=== PATIENT | male | born 1940 | race Caucasian/White ===

== ENCOUNTER 2021-12-11 17:19 | Observation (INO) | payer OTHER, SELFPAY ==
[2021-12-11] VITALS (13 sets, daily range): BP systolic 144–194; BP diastolic 68–89; PULSE 52–86; RESP 12–26; TEMP 34.5–36.9; O2SAT 89–98; BMI 25.7; BMI 27.1
--- NOTE | 2021-12-11 | DI.ECHO.S_ITS ---
[facility] +---------+ : : [address] : [address] : : : : [id number] : : : : Phone: [phone]+ Echocardiogram Report + + :Name: CHARLA TIDWELL Study Date: 12/12/2021 Height: 73 in : :[facility] ReadingLocation: Weight: 185 lb : : Gender: Male BSA: 2.1 m2 : :: 1940 Age: 81 yrs BP: 194/81 mmHg: :Reason For Study: TIA, CVA : :Ordering Physician: Manolo FANGformed By: Kerline Flowers : :Referring: ROMERO FANG : + + Interpretation Summary 1) Normal left ventricular thickness, size, wall motion, and systolic function (EF 60-65%). 2) Normal right ventricular size and function. 3) There is mild aortic stenosis (valve area 1.5cm2, mean gradient 13mmHg, severity ratio 0.51). 4) There is mild aortic regurgitation. 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 6) Hypertension present during the study (BP 194/81m Hg). 7) No prior Echo available for comparison. Procedure: A two-dimensional transthoracic echocardiogram with color flow and Doppler was performed. The study quality was technically adequate. There is no prior echocardiogram noted for this patient. The patient was in sinus rhythm with heart rates between 64-72 bpm during the exam. Left Ventricle: The estimated left ventricular end diastolic volume is 80 ml. The left ventricle is normal in size and wall thickness. The ejection fraction is estimated to be 60-65%. Left ventricular systolic function appears normal without focal wall motion abnormalities. Diastolic parameters suggest a relaxation abnormality of the left ventricle, consistent with probable normal filling pressures. Right Ventricle: The right ventricle is normal in size and function. Atria: The left atrium is moderately dilated. Right atrial size is normal. 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 Mitral Valve: The mitral valve leaflets appear mildly thickened, but open well. There is mild mitral annular calcification. There is mild mitral regurgitation. Aortic Valve: The aortic valve is trileaflet. The aortic valve is mildly calcified. The peak aortic velocity is 2.2 m/sec. The aortic valve mean gradient is 13 mmHg. The calculated aortic valve area is 1.5 cm2. There is mild aortic stenosis. There is mild aortic regurgitation. Tricuspid Valve: The tricuspid valve is normal in structure and function. There is a trace or physiologic amount of tricuspid regurgitation. Pulmonary artery pressures cannot be estimated because of the lack of a measurable TR jet velocity. Pulmonic Valve: The pulmonic valve is not well visualized. There is no pulmonic valvular regurgitation. Great Vessels: The aortic root is normal size. The dimensions of the ascending aorta are normal. The IVC is of normal diameter and collapses greater than 50% with a sniff. This suggests a low right atrial pressure of 3 mm Hg. Pericardium/ Pleura There is no pericardial effusion. There is no pleural effusion. MMode/2D Measurements & Calculations LVIDd: 3.7 cm LVOT diam: 2.0 cm LVIDs: 2.6 cm Ao root diam: 3.2 cm FS: 30.2 % asc Aorta Diam: 3.0 cm IVSd: 0.79 cm Ao Arch Diam (Prox Trans): 3.1 cm LVPWd: 0.95 cm LV dixon. diameter/BSA (cm/m^2): 1.8 LV sys. diameter/BSA (cm/m^2): 1.2 LA A2 area: 25.5 cm2 RA long axis: 5.3 cm LA A4 area: 21.0 cm2 RA area: 15.6 cm2 LA length (vol): 6.1 cm RA vol: 39.1 ml LA vol: 74.1 ml RA : 18.8 ml/m2 LA vol index: 35.6 ml/m2 IVC diam: 1.9 cm RVD1 (basal): 3.8 cm RVD2 (mid): 3.7 cm TAPSE: 1.8 cm Doppler Measurements & Calculations Ao V2 max: 225.5 cm/sec LVOT Max Lorenzo: 113.6 cm/sec Ao V2 mean: 159.2 cm/sec LV V1 max P.2 mmHg Ao max P.2 mmHg LV V1 VTI: 24.8 cm Ao mean P.0 mmHg ELANA(I,D): 1.5 cm2 Ao V2 VTI: 49.0 cm ELANA(V,D): 1.5 cm2 sev ratio: 0.51 ELANA indexed to BSA (cm^2/m^2): 0.73 MV E max lorenzo: 94.2 cm/sec PA V2 max: 145.3 cm/sec MV A max lorenzo: 115.7 cm/sec PA V2 mean: 95.9 cm/sec MV E/A: 0.81 PA mean P.3 mmHg Med Peak E' Lorenzo: 7.5 cm/sec PA pr(Accel): 43.0 mmHg E/E' med: 12.5 Lat Peak E' Lorenzo: 8.1 cm/sec E/E' lat: 11.6 E/e' average: 12.1 MV dec time: 0.34 sec SV(LVOT): 74.2 ml Reading Physician:01:00 PM
[2021-12-11] MEDS: ONDANSETRON 4 MG/2 ML INJ (17:38)
[2021-12-11 18:20] LABS: Add Manual Diff / Slide Review NO; Basophils Absolute Auto 100 /uL (0-100); Basophils Percent Auto 0.9 % (0-2); Eosinophils Absolute Auto 300 /uL (0-450); Eosinophils Percent Auto 4.3 % (2-4); Hematocrit 42.7 % (41-53); Hemoglobin 14.6 g/dL (13.5-17.5); Lymphocytes Absolute Auto 2600 /uL (1100-4500); Lymphocytes Percent Auto 32.7 % (25-40); Mean Corpuscular HGB Conc 34.1 % (30-36); Mean Corpuscular Hemoglobin 31.4 PG (26-34); Monocytes Absolute Auto 1000 /uL (0-900); Monocytes Percent Auto 12.6 % (3-14); Neutrophils Absolute Auto 3900 /uL (1500-7000); Neutrophils Percent Auto 49.5 % (50-75); Platelet Count 215 X10^3/uL (150-400); Red Blood Cell Count 4.64 X10^6/uL (4.5-5.9); Red Cell Distribution Width 14.2 % (11.6-14.8)
[2021-12-11 18:26] LABS: Alanine Aminotransferase 16 IU/L (<50); Albumin 4.5 g/dL (3.5-5.0); Albumin Globulin Ratio 1.4 (1.0-2.8); Alkaline Phosphatase 83 U/L (38-126); Aspartate Aminotransferase 28 IU/L (17-59); Bilirubin Total 0.4 mg/dL (0.2-1.3); Blood Urea Nitrogen 18 mg/dL (9-20); Carbon Dioxide 25 mmol/L (22-32); Chloride 104 mmol/L (98-107); Estimated Glomerular Filt Rate > 60 mL/min (>60); Globulin 3.3 g/dL (1.7-4.1); Glucose 139 mg/dL (80-110); HEMOLYSIS < 15 (0-50); Lipase 67 U/L (23-300); Potassium 3.8 mmol/L (3.4-5.1); Sodium 141 mmol/L (137-145); Total Protein 7.8 g/dL (6.3-8.2)
--- NOTE | 2021-12-11 18:38 | DI.CT.S_ITS ---
PROCEDURE: CT HEAD/BRAIN WO CON INDICATIONS: dizziness and confusion TECHNIQUE: Noncontrast 4.5 mm thick angled axial sections acquired from the foramen magnum to the vertex, with coronal and sagittal reformats. For radiation dose reduction, the following was used: automated exposure control, adjustment of mA and/or kV according to patient size. COMPARISON: None. FINDINGS: Image quality: Excellent. CSF spaces: Basal cisterns are patent. No extra-axial fluid collections. The ventricles are symmetric in size and shape. Brain: No intracranial bleeds or masses. There is cerebral volume loss for age, with resultant ventricular and sulcal prominence. There are periventricular and deep white matter chronic small vessel ischemic changes. There is intracranial internal carotid artery atherosclerosis. Skull and face: Calvarium and visualized facial bones appear intact, without suspicious lesions. Sinuses: Visualized sinuses and mastoids are clear. IMPRESSION: 1. No acute intracranial process. 2. Moderate atrophy and chronic microvascular ischemic changes. Dictated by: Sonam Herrera M.D. on 12/11/2021 at 19:35 Approved by: Sonam Herrera M.D. on 12/11/2021 at 19:38
--- NOTE | 2021-12-11 18:38 | ED_ITS ---
HPI - Nausea/Vomiting/Diarrhea General Chief complaint: Nausea/Vomiting/Diarrhea Stated complaint: n/v Time Seen by Provider: 12/11/21 18:06 Source: patient and EMS Mode of arrival: EMS History of Present Illness HPI Narrative: Patient is an 81-year-old male. No medications. No diagnosed medical problems. No allergies. Was brought in by EMS for evaluation of an episode that occurred several hours ago. As reported by the patient and his who is at bedside that he was at his normal state health when he had a fairly sudden onset of what he initially described as dizziness. Upon further questioning this appears to be more of an unsteadiness and not a vertigo sensation. Was associated with nausea. There has been no vomiting. Denied chest pain. No shortness of breath. No palpitations. No headache. No sinus congestion. No sore throat. No rashes. No abdominal pain. At the time the patient's also stated that he seemed to be somewhat confused. There was some apparent difficulty with trying to use a phone. His also thought that maybe he was not speaking correctly. There unsure exactly how long the symptoms lasted but it did seem to be several minutes and then seem to completely resolved. The symptoms have happened several times since the presentation. All of them seem to be very similar in all resolved your own. Currently patient states that he just generally does not feel very well. 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 Family History (Updated 12/11/21 @ 23:59 by MATTIE Mckeon) Father Natural with unknown cause Mother Heart disease Social History household members: spouse Smoking Status: Former smoker alcohol intake: current Smoking Status: Former smoker alcohol intake frequency: 3 or more drinks per day Alcohol type: beer, wine and hard liquor Substance Use Type: does not use Exam Initial Vital Signs Initial Vital Signs: Vital Signs Temperature 94.1 F L 12/11/21 17:33 Pulse Rate 55 L 12/11/21 17:33 Respiratory Rate 20 12/11/21 17:33 Blood Pressure 175/89 H 12/11/21 17:33 Pulse Oximetry 95 12/11/21 17:33 Const General: cooperative, comfortable, well developed, well groomed and No ill appearing HENMT Head: normal to inspection and normocephalic Mouth: moist mucous membranes Eyes Pupils: PERRL EOM: EOM intact bilaterally Chest Chest: normal inspection of the chest Resp Effort & Inspection: normal respiratory effort Auscultation: clear to auscultation bilaterally Cardio Rate: regular rate Rhythm: regular rhythm Heart Sounds: no murmurs GI Inspection: normal to inspection Skin General: no rashes or lesions noted Neuro General: patient alert, patient awake, patient oriented x3 and moves all extremities Cranial Nerves: CN's II-XI intact bilaterally Cognition: normal cognition Speech: speech normal Motor: muscle tone normal throughout Sensory Exam: no sensory deficits noted Coordination: [id number] test normal and veel-xr-xmtk test normal Extrem General: normal to inspection and capillary refill normal Psych Appearance: grossly normal and well kempt Scores ABCD2 Age >= 60 years: yes Initial BP. Either SBP >= 140 or DBP >= 90.: yes Clinical features of the TIA: speech disturbance without weakness Duration of symptoms: 10-59 minutes History of diabetes: no ABCD2 Score: 4 GCS Holly coma scale eye opening: Spontaneous Barre coma scale verbal response: Orientated Holly coma scale motor response: Obey commands Holly coma scale total score: 15 NIH Stroke Scale Level of Conciousness: Alert, keenly responsive Ask month/age: Answers both questions correctly. Open/close eyes, close hand: Performs both tasks correctly Best gaze horizontal: Normal Visual schulz: No visual loss Facial palsy: Normal symetrical movement Left arm drift: No drift for full 10 sec Right arm drift: No drift for full 10 sec Left leg drift: No drift for full 5 sec Right leg drift: No drift for full 5 sec Limb ataxia: Absent Sensory on face/arms/legs: Normal, no sensory loss Best language: No aphasia, normal Dysarthria: Normal Extinction or inattention: No abnormality Total NIH Stroke scale score: 0 Course Orders Ordered: ED Orders 12/11/21 17:35 Complete Blood Count AUTO DIFF Stat Comprehensive Metabolic Panel Stat ETOH [Ethanol (ETOH)] Stat Lipase Stat Troponin & CK Cardiac Panel Stat 12/11/21 18:38 CT head/brain wo con Stat Acetaminophen (Acetaminophen 325 Mg Tablet) 650 mg PO Q6HR PRN PRN Reason: Fever/Mild Pain (1-3) Apixaban (Apixaban 5 Mg Tablet) 5 mg PO BID [place] Last Admin: 12/11/21 23:08 Dose: 5 mg Documented by: LUIS Aspirin (Aspirin Ec 81 Mg Tablet) 81 mg PO DAILY [facility] Clopidogrel Bisulfate (Clopidogrel 75 Mg Tablet) 75 mg PO DAILY [facility] Naloxone HCl (Naloxone 0.4 Mg/Ml Vial) 0.2 mg IV Q2MIN PRN PRN Reason: Opiate Reversal Discontinued Medications Aspirin (Aspirin 81 Mg Chew Tab) 324 mg PO NOW ONE Stop: 12/11/21 21:28 Last Admin: 12/11/21 22:04 Dose: 324 mg Documented by: JOHN Ondansetron HCl (Ondansetron 4 Mg/2 Ml Inj) 4 mg IV NOW ONE Stop: 12/11/21 21:58 Last Admin: 12/11/21 22:04 Dose: 4 mg Documented by: JOHN Vital Signs Vital signs: Vital Signs - 8 hr 12/11/21 17:33 12/11/21 18:00 12/11/21 18:30 Temperature 94.1 F L Pulse Rate 55 L 52 L 69 Respiratory Rate 20 16 17 Blood Pressure 175/89 H 176/77 H 169/81 H Pulse Oximetry 95 89 L 97 12/11/21 19:12 12/11/21 19:31 12/11/21 20:01 Temperature Pulse Rate 55 L 55 L 55 L Respiratory Rate 12 16 22 Blood Pressure 177/76 H 163/80 H 157/68 H Pulse Oximetry 98 97 95 12/11/21 20:30 12/11/21 21:00 12/11/21 21:30 Temperature Pulse Rate 77 79 78 Respiratory Rate 17 18 16 Blood Pressure 160/73 H 161/70 H 158/77 H Pulse Oximetry 92 94 97 MDM - Nausea/Vomiting/Diarrhea Lab Data Attestation: I reviewed the patient's lab results. Result diagrams: 12/11/21 17:35 12/11/21 17:35 Labs: Lab Results 12/11/21 12/11/21 12/11/21 Range/Units 17:35 17:35 17:35 WBC 8.0 (4.5-11.0) X10^3/uL RBC 4.64 (4.5-5.9) X10^6/uL Hgb 14.6 (13.5-17.5) g/dL Hct 42.7 (41-53) % MCV 92.0 (80-100) fL MCH 31.4 (26-34) PG MCHC 34.1 (30-36) % RDW 14.2 (11.6-14.8) % Plt Count 215 (150-400) X10^3/uL Neut % (Auto) 49.5 L (50-75) % Lymph % (Auto) 32.7 (25-40) % [place] % (Auto) 12.6 (3-14) % Eos % (Auto) 4.3 H (2-4) % Baso % (Auto) 0.9 (0-2) % Neut # (Auto) 3900 (5895-3496) /uL Lymph # (Auto) 2600 (9496-6896) /uL [place] # (Auto) 1000 H (0-900) /uL Eos # (Auto) 300 (0-450) /uL Baso # (Auto) 100 (0-100) /uL Sodium 141 (137-145) mmol/L Potassium 3.8 (3.4-5.1) mmol/L Chloride 104 (98-107) mmol/L Carbon Dioxide 25 (22-32) mmol/L BUN 18 (9-20) mg/dL Creatinine 0.60 L (0.66-1.25) mg/dL Estimated GFR > 60 (>60) mL/min BUN/Creatinine Ratio 30.0 H (6-22) Glucose 139 H (80-110) mg/dL Hemoglobin A1c (4.0-6.0) % Calcium 9.0 (8.4-10.2) mg/dL Total Bilirubin 0.4 (0.2-1.3) mg/dL AST 28 (17-59) IU/L ALT 16 (<50) IU/L Alkaline Phosphatase 83 (38-126) U/L Total Creatine Kinase 38 L (55-170) U/L CK-MB (CK-2) TNP CK-MB (CK-2) Rel Index TNP Troponin I < 0.012 (0.01-0.034) ng/mL Total Protein 7.8 (6.3-8.2) g/dL Albumin 4.5 (3.5-5.0) g/dL Globulin 3.3 (1.7-4.1) g/dL Albumin/Globulin Ratio 1.4 (1.0-2.8) Lipase 67 (23-300) U/L TSH (0.47-4.68) uIU/mL Ethyl Alcohol ( - 10) mg/dL 12/11/21 12/11/21 12/11/21 Range/Units 17:35 17:35 17:35 WBC (4.5-11.0) X10^3/uL RBC (4.5-5.9) X10^6/uL Hgb (13.5-17.5) g/dL Hct (41-53) % MCV (80-100) fL MCH (26-34) PG MCHC (30-36) % RDW (11.6-14.8) % Plt Count (150-400) X10^3/uL Neut % (Auto) (50-75) % Lymph % (Auto) (25-40) % [place] % (Auto) (3-14) % Eos % (Auto) (2-4) % Baso % (Auto) (0-2) % Neut # (Auto) (1284-2334) /uL Lymph # (Auto) (4744-7821) /uL [place] # (Auto) (0-900) /uL Eos # (Auto) (0-450) /uL Baso # (Auto) (0-100) /uL Sodium (137-145) mmol/L Potassium (3.4-5.1) mmol/L Chloride (98-107) mmol/L Carbon Dioxide (22-32) mmol/L BUN (9-20) mg/dL Creatinine (0.66-1.25) mg/dL Estimated GFR (>60) mL/min BUN/Creatinine Ratio (6-22) Glucose (80-110) mg/dL Hemoglobin A1c 5.2 (4.0-6.0) % Calcium (8.4-10.2) mg/dL Total Bilirubin (0.2-1.3) mg/dL AST (17-59) IU/L ALT (<50) IU/L Alkaline Phosphatase (38-126) U/L Total Creatine Kinase (55-170) U/L CK-MB (CK-2) CK-MB (CK-2) Rel Index Troponin I (0.01-0.034) ng/mL Total Protein (6.3-8.2) g/dL Albumin (3.5-5.0) g/dL Globulin (1.7-4.1) g/dL Albumin/Globulin Ratio (1.0-2.8) Lipase (23-300) U/L TSH 1.66 (0.47-4.68) uIU/mL Ethyl Alcohol < 10 ( - 10) mg/dL Urine Dip Bedside Urine Glucose Negative Bedside Urine Bilirubin - Negative Bedside Urine Ketone +/- 5 Urine Specific [place] 1.030 Bedside Urine Occult Blood - Negative Bedside Urine pH 6 Bedside Urine Protein - Negative Bedside Urine Urobilinogen - Negative Bedside Urine Nitrite - Negative Bedside Urine Leukocytes - Negative Esterase Imaging Data CT scan - head: Radiologist's Impression: [place] [address] CT Scan Report Signed Patient: Sg Rivera MR#: [id number] : 1940 Acct:[id number] Age/Sex: 81 / M Date of Service: 12/11/21 Loc: ED Accession Number: [id number] ?? Procedure: CT head/brain wo con Ordering Provider: Mark Peralta D.O. PROCEDURE:? CT HEAD/BRAIN WO CON ? INDICATIONS:? dizziness and confusion ? TECHNIQUE:? Noncontrast 4.5 mm thick angled axial sections acquired from the foramen magnum to the vertex, with coronal and sagittal reformats.? For radiation dose reduction, the following was used:? automated exposure control, adjustment of mA and/or kV according to patient size.? ? COMPARISON:? None. ? FINDINGS:? Image quality:? Excellent.? ? CSF spaces:? Basal cisterns are patent.? No extra-axial fluid collections.? The ventricles are symmetric in size and shape.? ? Brain:? No intracranial bleeds or masses.? There is cerebral volume loss for age, with resultant ventricular and sulcal prominence.? There are periventricular and deep white matter chronic small vessel ischemic changes.? There is intracranial internal carotid artery atherosclerosis.? ? Skull and face:? Calvarium and visualized facial bones appear intact, without suspicious lesions.? ? Sinuses:? Visualized sinuses and mastoids are clear.? ? IMPRESSION:? ? 1. No acute intracranial process. ? 2. Moderate atrophy and chronic microvascular ischemic changes. ? ? ? Dictated by: Sonam Herrera M.D. on 12/11/2021 at 19:35 ? ? Approved by: Sonam Herrera M.D. on 12/11/2021 at 19:38?? ECG Data Attestation: I personally reviewed and interpreted this ECG as follows: Interpretation: Sinus bradycardia Ventricular rate of 49 Normal axis LVH No ST T wave changes MDM Narrative Medical decision making narrative: EKG is unremarkable. Head CT is unremarkable. Neurologic exam is unremarkable. His dizziness that he presents with his more been unsteadiness and not a vertigo. Was a fairly sudden onset. With the speech issues in the coordination issues that the describes there is concern about potential TIA especially since the symptoms seem to be coming and going. Does have Abcd2 score of 4. NIH score of 0. Given his presenting symptoms patient does require admission to the hospital for further evaluation and treatment of his presenting symptoms. I discussed this with the patient who expressed understanding and agreement. Discussed the case with LUIS Jerome the night Hospital will admit for further evaluation treatment. Patient was given aspirin in the emergency department. Discharge Plan Departure Patient Disposition: Admitted as Observation Clinical Impression: Brain TIA Admit Date/Time: 12/11/21 21:52 Admit Provider: Nuris Jerome
[2021-12-11 19:10] LABS: Creatine Kinase 38 U/L (55-170)
[2021-12-11 19:23] LABS: Troponin I < 0.012 ng/mL (0.01-0.034)
[2021-12-11 20:35] LABS: Ethanol (ETOH) < 10 mg/dL
--- NOTE | 2021-12-11 21:08 | PC.NURSE ---
Pt's daughter updated this RN on pt's condition. Pt has had progressive confusion for the last few months and has escalated in severity in the last few weeks. She reports that the patient is very active but has slowed down in the last year. She also said that the patient drinks but may deny this and is known to sneak drinks at home. Pt lives at home with his spouse and have family down the street. According to daughter huan patient was gardening outside and sat down after feeling unwell. Pt's spouse thought he was having a stroke because he had a far away gaze and then the patient began to vomit. Daughter is now at the bedside with pt's spouse.
--- NOTE | 2021-12-11 21:59 | DI.MRI.S_ITS ---
PROCEDURE: MR STROKE Pre- and post-contrast brain MRI, non-contrast brain MR angiogram, pre- and postcontrast neck MR angiogram INDICATIONS: CVA TECHNIQUE: Brain: Noncontrast axial T1 spin echo, axial T2 fast spin echo, sagittal and axial FLAIR, coronal T2 fast spin echo, axial gradient echo, axial diffusion and ADC through the brain. After the administration of contrast, axial 3D VIBE of the cranial vasculature and brain. Brain MRA: Non-contrast 3-D time of flight MR angiogram, with multiple jikolca-mmuaqyqql-qglfoegbmo (MIP) reformats performed. Neck MRA: Axial and sagittal TruFISP through the neck. Coronal dynamic MR angiogram during administration of contrast in the arterial and venous phases, with 3-dimenstional awgzbma-glrvpnhxg-irrdgqdsuu (MIP) reformats constructed from subtraction images. COMPARISON: [facility], CT, CT HEAD/BRAIN WO CON, 12/11/2021, 18:52. FINDINGS: Image quality: Excellent. BRAIN: CSF spaces: Ventricles are normal in size and shape. Basal cisterns are patent. No extra-axial fluid collections. Brain: There is abnormal diffusion-weighted signal seen involving the superior aspect left cerebellar hemisphere, with associated dark signal on the ADC map and associated developing increased T2 weighted signal. No intracranial bleeds or mass effects. Avendano-white matter interface is normal. Brainstem appears normal. Normal intravascular flow voids are present. No abnormal intracranial enhancement. Note is made of age-appropriate brain parenchymal volume loss and chronic small vessel ischemic changes. Skull and face: Calvarial marrow signal is normal. Orbits appear normal. Note is made of bilateral lens replacements. Sinuses: There is mild mucosal thickening seen involving the left maxillary sinus and the ethmoid air cells. Sinuses and mastoids are otherwise clear. BRAIN MR ANGIOGRAM: Anterior circulation: Intracranial internal carotid arteries are normal in size and enhancement. The flow within the paired anterior cerebral arteries is normal and symmetric. There is apparent narrowing of both M1 segments, and the right proximal M2 segments yet this is regarded to be artifactual. The anterior communicating artery is seen. No stenoses, occlusions, or aneurysms. Posterior circulation: There is poor flow seen within the right V4 segment distally. The right V4 segment largely terminates in the right posterior inferior cerebellar artery. The left V4 segment is within normal limits. There is a normal appearing basilar artery. There is a prominent right posterior communicating artery seen, with an accompanying diminutive right P1 segment. This is attributed to a type origin of the right posterior cerebral artery, which is considered to be a normal developmental variant of typically no clinical consequence. The left posterior communicating artery is also prominent. The flow within the posterior cerebral arteries is normal and symmetric. No stenoses, occlusions, or aneurysms. NECK MR ANGIOGRAM: Carotids: Great vessels demonstrate a conventional anatomy as they arise from the aortic arch. The origins of the common carotid arteries appear patent. The calibers and courses of both common carotid arteries are normal. The bifurcation regions appear normal bilaterally. The internal carotid arteries demonstrate normal course and caliber. Posterior circulation: The origins of the vertebral arteries appear patent. More superior extracranial portions of both vertebral arteries demonstrate normal course and caliber. Miscellaneous: Subclavian arteries appear patent. Pre-contrast images through the neck show no soft tissue abnormalities. 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 No masses or abnormal enhancement can be seen. Note is made of age-appropriate brain parenchymal volume loss and chronic small vessel ischemic changes. BRAIN MR ANGIOGRAM: There is poor flow seen within the right V4 segment. No significant additional intracranial arterial abnormality is seen. Trxcsd-ca-Uxlixi developmental anomalies are incidentally noted. NECK MR ANGIOGRAM: Within the arteries of the neck, no hemodynamically significant stenosis can be seen. Dictated by: Gregory Simon M.D. on 12/12/2021 at 11:08 Approved by: Gregory Simon M.D. on 12/12/2021 at 11:14
[2021-12-11] MEDS: ONDANSETRON 4 MG/2 ML INJ IV (22:04)
[2021-12-11] MEDS: ASPIRIN 81 MG CHEW TAB 324 MG PO (22:04)
[2021-12-11 22:22] LABS: COVID19 -Nasal RAPID Negative (Negative)
[2021-12-11 22:41] LABS: Hemoglobin A1C% w Est Avg Glu 5.2 % (4.0-6.0)
[2021-12-11 22:57] LABS: TSH w/ Reflex to FT4 1.66 uIU/mL (0.47-4.68)
[2021-12-11] MEDS: APIXABAN 5 MG TABLET PO (23:08)
--- NOTE | 2021-12-11 23:14 | PC.NURSE ---
Pt to room 214 via stretcher-sat up on the side of the stretcher for a couple of minutes and then was able to pivot transfer to bed. Pt stated he had a little bit of nausea and dizziness transferring but it went away after a minute. Pt is awake, alert, and oriented x 3. Denies pain, chest pain, or shortness of breath. Denies headache or vision disturbance. Oriented Pt to room, call light, bed controls and tv controls. Urinal at the bedside and water to drink. Pt was able to take a po medication as ordered. SCD's on and running. IV saline locked. Bed alarm on for safety. Pt denies needs at this time and agrees to call for assistance as needed.
--- NOTE | 2021-12-11 23:51 | P.HP_ITS ---
History of Present Illness History of Present Illness Date Patient Seen: 12/11/21 Time Patient Seen: 22:00 Date of Onset of Symptoms: 12/11/21 Chief complaint: TIA rule out, n/v Narrative: Nicolás Rivera is an 81-year-old male patient of Diana Martínez and takes no medications was out cutting and trimming his lawn when he returned back to the house with dizziness, lightheadedness nausea and vomiting. He was noted by his to be having difficult time down his phone, she stated he had slurred speech patient states that he was nauseous and felt poorly. He was also observed to be having difficulties ambulating. May also have mention to the emergency room department did provider that he drinks quite a bit though they state he will probably deny it. Patient stated that he threw up small amounts several times he has had sweats denies shortness of breath denies headache visual changes abdominal pain he does have occasional constipation that he takes little green pills for. He has some bruising on his left arm he attributes to ?Miss Chisholm?, his [id number] Goldendoodle when she gets up on his bed every night. CT of the brain was negative for an intracranial process. He is afebrile, blood pressure 144/86, heart rate 66, respiratory rate 18, oxygen saturation of 94% on 2 L, he weighs 88.4 kg with a BMI of 27.1. CBC is unremarkable, glucose is mildly elevated at 139 and his A1c was 5.2 not indicating diabetes, troponin was negative, liver enzymes within normal limits, lipase 67, and TSH of 1.66. Alcohol level was within normal limits and COVID-19 PCR is negative. 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 Family & Social History Family History (Updated 12/11/21 @ 23:59 by MATTIE Mckeon) Father Natural with unknown cause Mother Heart disease Social History: household members spouse Prior Living Arrangements House Safety & Behavioral: Feels Safe in Current Yes Environment Been Physically Hurt or No Threatened By a Person Tobacco & Substance use: Tobacco type cigarettes Smoking Status Former smoker, quit 25 years ago alcohol intake current alcohol intake frequency 1 vodka martini per day and 2 glasses of wine per day Substance Use Type does not use Comment: 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 Meds Home Medications and Allergies Home Medications Medication Instructions Recorded Confirmed Type No Known Home Medications 12/11/21 12/11/21 History Allergies Allergy/AdvReac Type Severity Reaction Status Date / Time No Known Drug Allergies Allergy Verified 12/11/21 17:33 Review of Systems Review of Systems ROS: Yes All systems reviewed with the patient and are negative except as otherwise documented Exam Vital Signs (past 8 hours): - 12/11/21 17:33 12/11/21 18:00 12/11/21 18:30 Temperature 94.1 F L Pulse Rate 55 L 52 L 69 Respiratory Rate 20 16 17 Blood Pressure 175/89 H 176/77 H 169/81 H Pulse Oximetry 95 89 L 97 12/11/21 19:12 12/11/21 19:31 12/11/21 20:01 Temperature Pulse Rate 55 L 55 L 55 L Respiratory Rate 12 16 22 Blood Pressure 177/76 H 163/80 H 157/68 H Pulse Oximetry 98 97 95 12/11/21 20:30 12/11/21 21:00 12/11/21 21:30 Temperature Pulse Rate 77 79 78 Respiratory Rate 17 18 16 Blood Pressure 160/73 H 161/70 H 158/77 H Pulse Oximetry 92 94 97 12/11/21 22:00 12/11/21 22:01 12/11/21 22:42 Temperature Pulse Rate 86 85 60 Respiratory Rate 26 H 19 20 Blood Pressure 194/81 H 158/78 H Pulse Oximetry 93 92 95 12/11/21 22:59 Temperature 98.5 F Pulse Rate 66 Respiratory Rate 18 Blood Pressure 144/86 H Pulse Oximetry 94 Oxygen Delivery Method Room Air Oxygen Flow Rate 2 Narrative Exam Narrative: Gen: Alert, oriented, well-developed 81 y.o. male, NAD appears younger than stated age HEENT: normocephalic, atraumatic, conjunctiva clear, sclera non-icteric, oral mucosa pink and moist Neck: supple, full ROM, no JVD, trachea is midline Resp: Lungs CTA, non-labored breathing CV: RRR, no murmur or rubs Abd: soft, non-tender, normoactive BTs Skin: bronzed, mild less than 1 cm diameter eccymosis on left upper arm, no lesions or rashes, dry and intact Neuro: Alert and oriented X 4 w/no focal deficits. Speech clear and coherent. Extremities: moves all 4 extremities, is ambulatory, negative Alex?s sign Psyche: normal mood and affect. Objective ECG Impression: Sinus bradycardia. Labs Result Diagrams: 12/11/21 17:35 12/11/21 17:35 Labs: Laboratory Results - last 24 hr 12/11/21 12/11/21 12/11/21 17:35 17:35 17:35 WBC 8.0 RBC 4.64 Hgb 14.6 Hct 42.7 MCV 92.0 MCH 31.4 MCHC 34.1 RDW 14.2 Plt Count 215 Neut % (Auto) 49.5 L Lymph % (Auto) 32.7 [place] % (Auto) 12.6 Eos % (Auto) 4.3 H Baso % (Auto) 0.9 Neut # (Auto) 3900 Lymph # (Auto) 2600 [place] # (Auto) 1000 H Eos # (Auto) 300 Baso # (Auto) 100 Sodium 141 Potassium 3.8 Chloride 104 Carbon Dioxide 25 BUN 18 Creatinine 0.60 L Estimated GFR > 60 BUN/Creatinine Ratio 30.0 H Glucose 139 H Hemoglobin A1c Calcium 9.0 Total Bilirubin 0.4 AST 28 ALT 16 Alkaline Phosphatase 83 Total Creatine Kinase 38 L CK-MB (CK-2) TNP CK-MB (CK-2) Rel Index TNP Troponin I < 0.012 Total Protein 7.8 Albumin 4.5 Globulin 3.3 Albumin/Globulin Ratio 1.4 Lipase 67 TSH Ethyl Alcohol SARS-CoV-2 (PCR) 12/11/21 12/11/21 12/11/21 17:35 17:35 17:35 WBC RBC Hgb Hct MCV MCH MCHC RDW Plt Count Neut % (Auto) Lymph % (Auto) [place] % (Auto) Eos % (Auto) Baso % (Auto) Neut # (Auto) Lymph # (Auto) [place] # (Auto) Eos # (Auto) Baso # (Auto) Sodium Potassium Chloride Carbon Dioxide BUN Creatinine Estimated GFR BUN/Creatinine Ratio Glucose Hemoglobin A1c 5.2 Calcium Total Bilirubin AST ALT Alkaline Phosphatase Total Creatine Kinase CK-MB (CK-2) CK-MB (CK-2) Rel Index Troponin I Total Protein Albumin Globulin Albumin/Globulin Ratio Lipase TSH 1.66 Ethyl Alcohol < 10 SARS-CoV-2 (PCR) 12/11/21 22:05 WBC RBC Hgb Hct MCV MCH MCHC RDW Plt Count Neut % (Auto) Lymph % (Auto) [place] % (Auto) Eos % (Auto) Baso % (Auto) Neut # (Auto) Lymph # (Auto) [place] # (Auto) Eos # (Auto) Baso # (Auto) Sodium Potassium Chloride Carbon Dioxide BUN Creatinine Estimated GFR BUN/Creatinine Ratio Glucose Hemoglobin A1c Calcium Total Bilirubin AST ALT Alkaline Phosphatase Total Creatine Kinase CK-MB (CK-2) CK-MB (CK-2) Rel Index Troponin I Total Protein Albumin Globulin Albumin/Globulin Ratio Lipase TSH Ethyl Alcohol SARS-CoV-2 (PCR) Negative Assessment & Plan Assessment & Plan narrative: Nicolás Rivera is placed into observation for further evaluation of a TIA vs CVA Suspected, TIA * Cardiac telemetry * NIH score greater than 5 no, * Dual antiplatelet therapy: Yes initiate dual antiplatelet therapy with clopidogrel 75 mg p.o. daily and aspirin 81 mg p.o. daily * MR stroke scheduled for 12/12 * Complete Echo with bubble study for 12/12 * PT/OT/ST evaluation Hypertension, acute with an admission bp of 175/89, present on admission * Allow for permissive hypertension for brain profusion of a systolic of 220 and a diastolic of 105. * IV labetolol if his systolic exceeds 220 or diastolic greater than 105. HLD * Fasting lipid panel, pending for 0500 labs * Atorvastatin 40 mg po at bedtime Risk stratification Fasting lipid panel pending for the morning A1c is 5.1% X not diabetic COVID-19 COVID-19 status: Negative Result date/Date tested (Pos, Neg/Pending): 12/12/21 Scores ABCD2 Age >= 60 years: yes Initial BP. Either SBP >= 140 or DBP >= 90.: yes Clinical features of the TIA: speech disturbance without weakness Duration of symptoms: 10-59 minutes History of diabetes: no ABCD2 Score: 4 Wells' Criteria for PE Clinical signs and symptoms of DVT: No PE is #1 Dx or equally likely: No Heart rate > 100: No Immobilization at least 3 days or surg in previous 4 weeks: No History of PE or DVT: No Hemoptysis: No Malignancy w/Treatment within 6 months or palliative: No Wells' PE Score total: 0 Quality VTE Deep Vein Thrombosis/Pulmonary Embolism Present on Admission: No MIPS - Admit I confirm the patient?s Advance Care Plan is present, Code status is documented, Surrogate decision maker is in patient?s record [If Yes, STOP here]: Yes MIPS - DC The patient has current or prior documentation of left ventricular ejection fraction (LVEF) less than 40%, or moderate or severely depressed left ventricu lar systolic function.: No
[2021-12-12 03:22] LABS: Ur Creatinine 20 (Normal); Ur Specific Gravity 1.025 (Normal)
[2021-12-12 03:23] LABS: UR Morphine/Opiate cutoff 300 Negative (Negative); Urine Amphetamines Negative (Negative); Urine Barbiturates Negative (Negative); Urine Benzodiazepines Negative (Negative); Urine Cocaine Negative (Negative); Urine MDMA Negative (Negative); Urine Methadone Negative (Negative); Urine Methamphetamines Negative (Negative); Urine Oxycodone Negative (Negative); Urine Phencyclidine Negative (Negative); Urine Tetrahydrocannabinol Negative (Negative); Urine Tricyclic Antidepressant Negative (Negative); Urine pH 6 (Normal)
[2021-12-12 03:29] LABS: Bacteria Urine None Seen; RBC Urine None Seen (0-5/HPF); WBC Urine 0-1/HPF (0-5/HPF)
[2021-12-12 03:30] LABS: Culture Indicated Urine Cult Not Indicated
[2021-12-12 04:17] VITALS: BP 134/65; PULSE 68; RESP 17; TEMP 36.1; O2SAT 97
[2021-12-12 06:13] LABS: Add Manual Diff / Slide Review NO; Basophils Absolute Auto 0 /uL (0-100); Basophils Percent Auto 0.6 % (0-2); Eosinophils Absolute Auto 0 /uL (0-450); Eosinophils Percent Auto 0.2 % (2-4); Hematocrit 40.6 % (41-53); Hemoglobin 13.7 g/dL (13.5-17.5); Lymphocytes Absolute Auto 1300 /uL (1100-4500); Lymphocytes Percent Auto 20.2 % (25-40); Mean Corpuscular HGB Conc 33.8 % (30-36); Mean Corpuscular Volume 91.8 fL (80-100); Monocytes Absolute Auto 800 /uL (0-900); Monocytes Percent Auto 12.3 % (3-14); Neutrophils Absolute Auto 4100 /uL (1500-7000); Neutrophils Percent Auto 66.7 % (50-75); Platelet Count 199 X10^3/uL (150-400); Red Blood Cell Count 4.43 X10^6/uL (4.5-5.9); White Blood Cell Count 6.2 X10^3/uL (4.5-11.0)
[2021-12-12 06:30] LABS: Cholesterol 226 mg/dL (140-199); HDL Cholesterol 101 mg/dL (40-60); LDL Cholesterol Calculated 115 mg/dL (<100); Triglycerides 49 mg/dL (35-150)
[2021-12-12 08:30] VITALS: BP 141/67; PULSE 74; RESP 18; TEMP 36.8; O2SAT 96
[2021-12-12] MEDS: CLOPIDOGREL 75 MG TABLET PO (08:53)
[2021-12-12] MEDS: ASPIRIN EC 81 MG TABLET PO (08:53)
[2021-12-12] MEDS: APIXABAN 5 MG TABLET PO (08:53)
--- NOTE | 2021-12-12 11:31 | CM.DANOTE ---
DCP: Case received, EMR reviewed and met with patient. Introduced self and role. Was able to obtain information regarding patient's baseline activity status prior to hospitalization. DCP assessment completed with information currently available. Patient is an 81 year old male who admitted yesterday evening to the care of the hospitalist team. PCP: Diana Martínez Payer: confirmed: [facility]. Patient came to the hospital via ambulance secondary to having onset of dizziness, unsteadiness and nausea. According to notes, patient had also had some difficulty using the phone. Patient was diagnosed with suspected TIA, he will be having an MRI today. He does not have current P.T. orders. Met with patient in his room. He is alert and oriented, and was sitting up in bed. Confirmed that he resides in [place] with his spouse, Brandon. He is independent at his baseline, as he was mowing his lawn before the symptoms occurred. P: DCP to continue to follow for any needs, and will see if patient will need P.T, and MRI is currently pending. Marcela Santillan RN/Planer Hand Discharge Planning/Care Management CM Discharge Assessment Start: 12/12/21 11:29 Freq: Status: Active Protocol: Document 12/12/21 11:30 (Rec: 12/12/21 11:31 [id number]) Discharge Planning Assessment Assigned Satellite Specialist Marcela Santillan RN/Planer Hand Advance Directives? No History Provided By Patient,Medical Record Prior Living Arrangements House Household Members spouse Type of transporation used prior to Drives own vehicle admit Independent with ADL's Yes Is patient alert and oriented? Yes Caregiver for Another No Barriers to Discharge No Discharge Plan Home Referrals Initiated None needed Whiteboard Updated in Patient Room with Yes name and ext. # of Satellite Specialist Review Status In Process Next Review Type Continued Stay Review
[2021-12-12 12:26] LABS: Blood Urea Nitrogen 13 mg/dL (9-20); Calcium 8.5 mg/dL (8.4-10.2); Carbon Dioxide 31 mmol/L (22-32); Chloride 102 mmol/L (98-107); Estimated Glomerular Filt Rate > 60 mL/min (>60); Glucose 117 mg/dL (80-110); HEMOLYSIS < 15 (0-50); Magnesium 1.9 mg/dL (1.6-2.3); Potassium 4.4 mmol/L (3.4-5.1); Sodium 137 mmol/L (137-145)
--- NOTE | 2021-12-12 13:46 | P.DS_ITS ---
History of Present Illness History of Present Illness Date Patient Seen: 12/12/21 Chief complaint: TIA rule out, n/v Narrative: History of Present Illness History of Present Illness Date Patient Seen:?12/11/21 Time Patient Seen:?22:00 Date of Onset of Symptoms:?12/11/21 Narrative: Nicolás Rivera is an 81-year-old male patient of Diana Martínez and takes no medications was out cutting and trimming his lawn when he returned back to the house with dizziness, lightheadedness nausea and vomiting.? He was noted by his to be having difficult time down his phone, she stated he had slurred speech patient states that he was nauseous and felt poorly.? He was also observed to be having difficulties ambulating.? May also have mention to the emergency room department did provider that he drinks quite a bit though they state he will probably deny it.? Patient stated that he threw up small amounts several times he has had sweats denies shortness of breath denies headache visual changes abdominal pain he does have occasional constipation that he takes little green pills for.? He has some bruising on his left arm he attributes to ?Miss Chisholm?, his [id number] Goldendoodle when she gets up on his bed every night. CT of the brain was negative for an intracranial process.? He is afebrile, blood pressure 144/86, heart rate 66, respiratory rate 18, oxygen saturation of 94% on 2 L, he weighs 88.4 kg with a BMI of 27.1.? CBC is unremarkable, glucose is mildly elevated at 139 and his A1c was 5.2 not indicating diabetes, troponin was negative, liver enzymes within normal limits, lipase 67, and TSH of 1.66.? Alcohol level was within normal limits and COVID-19 PCR is negative. 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 DYSLIPIDEMIA. DISCHARGE ON LIPITOR OVERWEIGHT. BMI OF 27 POSSIBLE ALCOHOL ABUSE. COUNSELING GIVEN PATIENT SHOW HYPERTENSION. DISCHARGED ON LISINOPRIL Hospital Course: THIS IS A VERY PLEASANT 81-YEAR-OLD MALE WHO WAS ADMITTED TO THE HOSPITAL DUE TO DIFFICULTY STANDING UP AND REPORTED LIGHTHEADEDNESS AND DIZZINESS. PATIENT WAS WORKED UP FOR A POSSIBLE CVA/TIA. MRI DID SHOW WHAT APPEARS TO BE A LEFT CEREBRAL SUBACUTE STROKE. PATIENT HAS SIGNIFICANT NEUROLOGICAL DEFICIT AT THIS TIME. NO DIFFICULTY SWALLOWING. HE HAS BEEN AMBULATING WELL WITHOUT REPORTED DIZZINESS OR LIGHTHEADEDNESS. LDL CHOLESTEROL IS ABOVE 100. HE HAS SOME MILD ELEVATED BLOOD PRESSURE READINGS PATIENT WILL BE DISCHARGED ON LIPITOR 40 MG, HE IS ALREADY ON FISH OIL. RECOMMENDED TO ALSO ADD [id number] NIACIN. LOW-SALT DIET WELL LOW-CHOLESTEROL DIET IS RECOMMENDED. PATIENT ALSO WILL BE DISCHARGED ON LISINOPRIL TO HELP WITH STRICT BLOOD PRESSURE CONTROL DISCHARGED ON DUAL ANTI-PLATELET THERAPY. ASPIRIN AND PLAVIX. PATIENT WILL NEED TO BE MONITOR CLOSELY FOR ANY SIGN OF BLEEDING WHILE ON ANTI-PLATELET THERAPY. RECOMMENDATION IS TO FOLLOW-UP WITH PRIMARY CARE PHYSICIAN WITHIN 7 DAYS AND TO BE REFERRED TO NEUROLOGY FOR FURTHER WORKUP AND MANAGEMENT INDICATED. MRA BRAIN AND NECK DONE DURING THE WORKUP WAS WITHOUT SIGNIFICANT STENOSIS APPRECIATED. ADDITIONAL MANAGEMENT PER OUTPATIENT PROVIDERS. OF NOTE, FAMILY DID REPORT PATIENT WITH DEVELOPMENT OF MEMORY ISSUES. HE WILL NEED TO BE EVALUATED BY NEUROLOGY OUTPATIENT WITH NEUROPSYCH TESTING TO RULE OUT POSSIBLE DEVELOPING DEMENTIA. DISCHARGE ORDERS ACTIVITIES WILL BE TOLERATED CARDIAC DIET FOLLOW WITH PRIMARY CARE PHYSICIAN WITHIN 3-7 DAYS PCP TO REFER TO NEUROLOGY WITHIN 2-4 WEEKS. INSTRUCTIONS AVOID TOBACCO PRODUCTS AVOID ALL ALCOHOL PRODUCTS TAKE MEDICATION PRESCRIBED ONLY REPORT ANY BLACK TARRY STOOL OR BLOOD IN THE SPUTUM ON IN THE URINE TO HEALTHCARE PROVIDER SOON NOTED Exam Vital Signs (past 8 hours): - 12/12/21 08:30 Temperature 98.3 F Pulse Rate 74 Respiratory Rate 18 Blood Pressure 141/67 H Pulse Oximetry 96 Oxygen Delivery Method Room Air Oxygen Flow Rate 0 Narrative Exam Narrative: NO ACUTE DISTRESS. PATIENT IS ALERT ORIENTED X3. VITAL SIGNS STABLE HEAD ATRAUMATIC NORMOCEPHALIC NECK : SUPPLE WITHOUT ADENOPATHY NO CAROTID BRUITS EYE: EOMI, PERRLA, NORMAL CONJUNCTIVA; NO JAUNDICE CHEST: REGULAR RATE. NO RUBS. PMI IS NON DISPLACED. NO MURMURS; NORMAL S1- S2 PULMONARY: DECREASED BS OVER THE BASES. MILD BIBASILAR CRACKLES NOTED; NO INCREASED DULLNESS TO PERCUSSION ABDOMEN: SOFT. NONTENDER. NONDISTENDED. BOWEL SOUNDS ARE PRESENT IN ALL 4 QUADRANTS. NO MASS. EXTREMITIES: NO EDEMA.. NO CYANOSIS CLUBBING NOTED. NEURO: CRANIAL NERVES 2-12 GROSSLY INTACT. NO FOCAL NEUROLOGICAL DEFICIT NOTED. MSK: NORMAL RANGE OF MOTION FOR AGE. NO JOINT EFFUSION. SKIN: NORMAL FOR ETHNICITY; NO ECCHYMOSIS. NO LESION. GOOD TURGOR.; NO RASHES : NORMAL EXTERNAL GENITALIA. PSYCH : APPROPRIATE MOOD AND AFFECT. ALERT AWAKE ORIENTED X3 Objective Labs Result Diagrams: 12/12/21 06:04 12/12/21 06:04 Labs: Laboratory Results - last 24 hr 12/11/21 12/11/21 12/11/21 17:35 17:35 17:35 WBC 8.0 RBC 4.64 Hgb 14.6 Hct 42.7 MCV 92.0 MCH 31.4 MCHC 34.1 RDW 14.2 Plt Count 215 Neut % (Auto) 49.5 L Lymph % (Auto) 32.7 [place] % (Auto) 12.6 Eos % (Auto) 4.3 H Baso % (Auto) 0.9 Neut # (Auto) 3900 Lymph # (Auto) 2600 [place] # (Auto) 1000 H Eos # (Auto) 300 Baso # (Auto) 100 Sodium 141 Potassium 3.8 Chloride 104 Carbon Dioxide 25 BUN 18 Creatinine 0.60 L Estimated GFR > 60 BUN/Creatinine Ratio 30.0 H Glucose 139 H Hemoglobin A1c Calcium 9.0 Magnesium Total Bilirubin 0.4 AST 28 ALT 16 Alkaline Phosphatase 83 Total Creatine Kinase 38 L CK-MB (CK-2) TNP CK-MB (CK-2) Rel Index TNP Troponin I < 0.012 Total Protein 7.8 Albumin 4.5 Globulin 3.3 Albumin/Globulin Ratio 1.4 Triglycerides Cholesterol LDL Cholesterol, Calc HDL Cholesterol Lipase 67 TSH Urine RBC Urine WBC Urine Bacteria Ur Culture Indicated? Micro UA Comment U Opiates 300ng/mL cut Ur Oxycodone Screen Urine Methadone Screen Ur Barbiturates Screen U Tricyclic Antidepress Ur Phencyclidine Scrn Ur Amphetamines Screen U Methamphetamines Scrn Ur MDMA Scrn (Ecstasy) U Benzodiazepines Scrn Urine Cocaine Screen U Marijuana (THC) Screen Ethyl Alcohol SARS-CoV-2 (PCR) 12/11/21 12/11/21 12/11/21 17:35 17:35 17:35 WBC RBC Hgb Hct MCV MCH MCHC RDW Plt Count Neut % (Auto) Lymph % (Auto) [place] % (Auto) Eos % (Auto) Baso % (Auto) Neut # (Auto) Lymph # (Auto) [place] # (Auto) Eos # (Auto) Baso # (Auto) Sodium Potassium Chloride Carbon Dioxide BUN Creatinine Estimated GFR BUN/Creatinine Ratio Glucose Hemoglobin A1c 5.2 Calcium Magnesium Total Bilirubin AST ALT Alkaline Phosphatase Total Creatine Kinase CK-MB (CK-2) CK-MB (CK-2) Rel Index Troponin I Total Protein Albumin Globulin Albumin/Globulin Ratio Triglycerides Cholesterol LDL Cholesterol, Calc HDL Cholesterol Lipase TSH 1.66 Urine RBC Urine WBC Urine Bacteria Ur Culture Indicated? Micro UA Comment U Opiates 300ng/mL cut Ur Oxycodone Screen Urine Methadone Screen Ur Barbiturates Screen U Tricyclic Antidepress Ur Phencyclidine Scrn Ur Amphetamines Screen U Methamphetamines Scrn Ur MDMA Scrn (Ecstasy) U Benzodiazepines Scrn Urine Cocaine Screen U Marijuana (THC) Screen Ethyl Alcohol < 10 SARS-CoV-2 (PCR) 12/11/21 12/12/21 12/12/21 22:05 03:00 03:00 WBC RBC Hgb Hct MCV MCH MCHC RDW Plt Count Neut % (Auto) Lymph % (Auto) [place] % (Auto) Eos % (Auto) Baso % (Auto) Neut # (Auto) Lymph # (Auto) [place] # (Auto) Eos # (Auto) Baso # (Auto) Sodium Potassium Chloride Carbon Dioxide BUN Creatinine Estimated GFR BUN/Creatinine Ratio Glucose Hemoglobin A1c Calcium Magnesium Total Bilirubin AST ALT Alkaline Phosphatase Total Creatine Kinase CK-MB (CK-2) CK-MB (CK-2) Rel Index Troponin I Total Protein Albumin Globulin Albumin/Globulin Ratio Triglycerides Cholesterol LDL Cholesterol, Calc HDL Cholesterol Lipase TSH Urine RBC None seen Urine WBC 0-1/hpf Urine Bacteria None seen Ur Culture Indicated? Cult not indicated Micro UA Comment * U Opiates 300ng/mL cut Negative Ur Oxycodone Screen Negative Urine Methadone Screen Negative Ur Barbiturates Screen Negative U Tricyclic Antidepress Negative Ur Phencyclidine Scrn Negative Ur Amphetamines Screen Negative U Methamphetamines Scrn Negative Ur MDMA Scrn (Ecstasy) Negative U Benzodiazepines Scrn Negative Urine Cocaine Screen Negative U Marijuana (THC) Screen Negative Ethyl Alcohol SARS-CoV-2 (PCR) Negative 12/12/21 12/12/21 12/12/21 06:04 06:04 06:04 WBC 6.2 RBC 4.43 L Hgb 13.7 Hct 40.6 L MCV 91.8 MCH 31.0 MCHC 33.8 RDW 14.0 Plt Count 199 Neut % (Auto) 66.7 Lymph % (Auto) 20.[address] [place] % (Auto) 12.3 Eos % (Auto) 0.2 L Baso % (Auto) 0.6 Neut # (Auto) 4100 Lymph # (Auto) 1300 [place] # (Auto) 800 Eos # (Auto) 0 Baso # (Auto) 0 Sodium 137 Potassium 4.4 Chloride 102 Carbon Dioxide 31 BUN 13 Creatinine 0.59 L Estimated GFR > 60 BUN/Creatinine Ratio 22.0 Glucose 117 H Hemoglobin A1c Calcium 8.5 Magnesium 1.9 Total Bilirubin AST ALT Alkaline Phosphatase Total Creatine Kinase CK-MB (CK-2) CK-MB (CK-2) Rel Index Troponin I Total Protein Albumin Globulin Albumin/Globulin Ratio Triglycerides 49 Cholesterol 226 H LDL Cholesterol, Calc 115 H HDL Cholesterol 101 H Lipase TSH Urine RBC Urine WBC Urine Bacteria Ur Culture Indicated? 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 Family History (Updated 12/11/21 @ 23:59 by MATTIE Mckeon) Father Natural with unknown cause Mother Heart disease Social History household members: spouse Smoking Status: Former smoker alcohol intake: current Discharge Plan Discharge Plan Patient Disposition: Home Discharge orders & Medications Prescriptions: New clopidogrel 75 mg Tablet 75 mg PO DAILY Qty: 60 2RF aspirin 81 mg Tablet,Delayed Release (Dr/Ec) 81 mg PO DAILY Qty: 60 2RF lisinopril 10 mg tablet 10 mg PO DAILY Qty: 30 2RF atorvastatin [Lipitor] 40 mg tablet 40 mg PO BEDTIME Qty: 30 2RF Diet/Activity/Treatments Diet: Low-fat and Low-cholesterol Activity: TOLERATED Discharge Data Attending Provider: Nuris Jerome VTE Deep Vein Thrombosis/Pulmonary Embolism Present on Admission: No
== END 2021-12-12 14:40 | disposition home or self-care (01) ==
LOC: ED 21:20 → AC 21:53
PROVIDERS: Admitting Provider Nurse Practitioner Family; Emergency Provider Emergency Medicine; Referring Provider Emergency Medicine; Visit Provider Nurse Practitioner Family
DX: I63.89 Other cerebral infarction (principal); R11.2 Nausea with vomiting, unspecified; R19.7 Diarrhea, unspecified; R29.700 NIHSS score 0; I10 Essential (primary) hypertension; E78.5 Hyperlipidemia, unspecified; E66.3 Overweight; Z68.27 Body mass index [BMI] 27.0-27.9, adult; Z20.822 Contact with and (suspected) exposure to COVID-19
CPT/HCPCS: 36415; 70450; 70548; 70553; 80048; 80053; 80061; 80305; 80320; 81003; 81015; 82550; 83036; 83690; 83735; 84443; 84484; 85025; 87635; 93005; 93306; 96374; 96376; 99284; C9803; G0378; A9579; J2405

== ENCOUNTER 2024-05-24 16:04 | Emergency (ER) | payer MEDICARE, SELFPAY ==
[2021-12-11 23:03] VITALS: BMI 27.1
[2024-05-24 16:25] VITALS: BP 127/60; PULSE 78; RESP 18; TEMP 36.4; O2SAT 95; BMI 27.2
--- NOTE | 2024-05-24 16:34 | DI.CT.S_ITS ---
PROCEDURE: CT CERVICAL SPINE WO CON INDICATIONS: fall, hit head, no thinners TECHNIQUE: Noncontrast 3 mm thick sections acquired from the skull base to the T4 level. Sagittal and coronal reformats were then constructed. For radiation dose reduction, the following was used: automated exposure control, adjustment of mA and/or kV according to patient size. COMPARISON: None. FINDINGS: Image quality: Excellent. Bones: No fractures or dislocations. Visualized superior ribs are intact. Disc space narrowing and degenerative endplate changes noted in the mid cervical spine. Facet arthropathy present as well. Predominantly left-sided foraminal stenosis in the mid cervical spine. Craniovertebral relationships are normal Soft tissues: Prevertebral soft tissues are normal in thickness. No paravertebral hematomas. No apical pneumothoraces. IMPRESSION: Degenerative disc disease and arthropathy fracture or traumatic malalignment. Approved by: Hamlet Fernandez M.D. on 05/24/2024 at 16:48
--- NOTE | 2024-05-24 16:34 | DI.CT.S_ITS ---
PROCEDURE: CT HEAD/BRAIN WO CON INDICATIONS: fall, hit head, no thinners TECHNIQUE: Noncontrast 4.5 mm thick angled axial sections acquired from the foramen magnum to the vertex, with coronal and sagittal reformats. For radiation dose reduction, the following was used: automated exposure control, adjustment of mA and/or kV according to patient size. COMPARISON: [facility], CT, CT HEAD/BRAIN WO CON, 12/11/2021, 18:52. FINDINGS: CSF spaces: Basal cisterns are patent. No extra-axial fluid collections. Ventricles are normal in size and shape. Brain: No midline shift. No intracranial masses or hemorrhage. [place]-white matter interface is normal. Moderate cerebral and cerebellar volume loss with multifocal white matter chronic ischemic change noted. Atherosclerotic calcification noted associated with cavernous segments of both internal carotid arteries. Skull and face: Calvarium and visualized facial bones are intact, without suspicious lesions. Left parietal scalp hematoma. Sinuses: Visualized sinuses and mastoids are clear. IMPRESSION: Atrophy and chronic ischemic change without intracranial hemorrhage or mass effect. Left posterior parietal scalp hematoma. No skull fracture. Approved by: Hamlet Fernandez M.D. on 05/24/2024 at 16:40
--- NOTE | 2024-05-24 18:11 | ED.HEATRA ---
HPI - Head Injury <Jasmin Osman PA-C - Last Filed: 05/24/24 18:55> General Chief complaint: Head Injury Stated complaint: Fall, head injury, no blood thinners Time Seen by Provider: 05/24/24 16:39 Source: patient Mode of arrival: Ambulatory History of Present Illness HPI Narrative: 83-year-old male with past medical history TIA, on clopidogrel presents to the ED status post a mechanical fall sustained just prior to arrival. Patient states he was moving a heavy chair on the deck, was walking backwards, tripped on a rug and fell backwards striking his head on the floor. No loss of consciousness. Patient was able to stand up and walk in to the house and clean up. Patient's neighbor drove him to the ED. patient notes bleeding from the top of his head where he struck it. Patient denies headache, neck pain. Patient is walking well by himself. Last tetanus is unknown. Related Data Previous Rx's Medication Instructions Recorded aspirin 81 mg tablet,delayed 81 mg PO DAILY #60 tabs 12/12/21 release atorvastatin 40 mg tablet (Lipitor) 40 mg PO BEDTIME #30 tabs 12/12/21 clopidogrel 75 mg tablet 75 mg PO DAILY #60 tabs 12/12/21 lisinopril 10 mg tablet 10 mg PO DAILY #30 tabs 12/12/21 Allergies Allergy/AdvReac Type Severity Reaction Status Date / Time No Known Drug Allergies Allergy Verified 05/24/24 16:25 Review of Systems <Jasmin Osman PA-C - Last Filed: 05/24/24 18:55> Constitutional Constitutional: Denies chills, Denies fatigue, Denies fever(s), Denies frequent falls, Denies lethargy and Denies weakness Eyes Eyes: Denies change in vision, Denies eye discharge, Denies irritation and Denies loss of vision ENT Ears, Nose, Mouth, and Throat: Denies change in voice, Denies dizziness, Denies neck pain, Denies sore throat and Denies throat swelling Cardiovascular Cardiovascular: Denies chest pain, Denies irregular heart rhythm, Denies lightheadedness, Denies palpitations, Denies dyspnea, Denies dyspnea on exertion and Denies orthopnea Respiratory Respiratory: Denies cough, Denies dyspnea, Denies dyspnea on exertion and Denies wheezing Gastrointestinal Gastrointestinal: Denies abdominal pain, Denies change in bowel habits, Denies diarrhea, Denies nausea and Denies vomiting Musculoskeletal Musculoskeletal: Denies neck pain and Denies numbness Integumentary/Breasts Skin/Breast: Denies pruritus, Denies erythema, Denies rash and Denies wounds Comments: Scalp wound Neurologic Neurologic: Denies behavioral changes, Denies confusion, Denies dizziness, Denies frequent falls, Denies loss of vision, Denies numbness and Denies weakness Psychiatric Psychiatric: Denies anxiety, Denies behavioral changes, Denies confusion, Denies depression, Denies homicidal ideation and Denies suicidal ideation Endocrine Endocrine: Denies fatigue, Denies flushing and Denies palpitations Hematologic/Lymphatic Hematologic/Lymphatic: Denies easy bruising Allergic/Immunologic Allergic/Immunologic: Denies urticaria, Denies throat swelling and Denies wheezing Patient History <Jasmin Osman PA-C - Last Filed: 05/24/24 18:55> Medical History Patient denies medical problems Surgical History (Updated 12/11/21 @ 23:56 by MATTIE Mckeon) 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 Family History (Updated 12/11/21 @ 23:59 by MATTIE Mckeon) Father Natural with unknown cause Mother Heart disease Social History household members: spouse Smoking Status: Former smoker alcohol intake: current Smoking Status: Former smoker alcohol intake frequency: 3 or more drinks per day Alcohol type: beer, wine and hard liquor Substance Use Type: does not use Exam <Jasmin Osman PA-C - Last Filed: 05/24/24 18:55> Narrative Exam Narrative: Const General:?cooperative, healthy appearing and comfortable [facility] Head: There is a left posterior parietal scalp hematoma with an abrasion, mildly oozing, bleeding controlled with pressure. Ears:?hearing grossly normal bilaterally Nose:?external nose normal Face and sinus:?normal facial exam and sinuses nontender Mouth:?oral mucosae normal Throat:?posterior oropharynx normal Eyes General:?appearance normal, both eyes and all related structures Neck Neck:?normal visual inspection and no lymphadenopathy noted Resp Effort & Inspection:?normal respiratory effort Auscultation:?clear to auscultation bilaterally Cardio Rate:?regular rate Rhythm:?regular rhythm Musculoskeletal No midline tenderness to palpation. No paraspinal tenderness to palpation. There is full range of motion. Strength and sensation is intact. Patient is neurovascularly intact. Neuro General:?patient alert, patient awake and patient oriented x3 Initial Vital Signs Initial Vital Signs: Vital Signs Temperature 97.5 F L 05/24/24 16:25 Pulse Rate 78 05/24/24 16:25 Respiratory Rate 18 05/24/24 16:25 Blood Pressure 127/60 05/24/24 16:25 Pulse Oximetry 95 05/24/24 16:25 Oxygen Delivery Method Room Air 05/24/24 16:25 <Elizabeth Hunter DO - Last Filed: 05/27/24 07:11> Initial Vital Signs Initial Vital Signs: Vital Signs Temperature 97.5 F L 05/24/24 16:25 Pulse Rate 78 05/24/24 16:25 Respiratory Rate 18 05/24/24 16:25 Blood Pressure 127/60 05/24/24 16:25 Pulse Oximetry 95 05/24/24 16:25 Oxygen Delivery Method Room Air 05/24/24 16:25 Course <Jasmin Osman PA-C - Last Filed: 05/24/24 18:55> Orders Ordered: Discontinued Medications Diphtheria/Tetanus/Acell Pertussis (Tet,Diph,Pertuss(Acell),Vac/Pf 0.5 Ml Syringe) 0.5 ml IM .ONCE ONE Stop: 05/24/24 18:21 Last Admin: 05/24/24 18:45 Dose: 0.5 ml Documented By: MAIRA Vital Signs Vital signs: Vital Signs - 8 hr 05/24/24 16:25 Temperature 97.5 F L Pulse Rate 78 Respiratory Rate 18 Blood Pressure 127/60 Pulse Oximetry 95 Oxygen Delivery Method Room Air <Elizabeth Hunter DO - Last Filed: 05/27/24 07:11> Orders Ordered: Discontinued Medications Diphtheria/Tetanus/Acell Pertussis (Tet,Diph,Pertuss(Acell),Vac/Pf 0.5 Ml Syringe) 0.5 ml IM .ONCE ONE Stop: 05/24/24 18:21 Last Admin: 05/24/24 18:45 Dose: 0.5 ml Documented By: MAIRA Vital Signs Vital signs: Vital Signs - 8 hr 05/24/24 16:25 Temperature 97.5 F L Pulse Rate 78 Respiratory Rate 18 Blood Pressure 127/60 Pulse Oximetry 95 Oxygen Delivery Method Room Air MDM - Head Injury <Jasmin Osman PA-C - Last Filed: 05/24/24 18:55> MDM Narrative Medical decision making narrative: 83-year-old male with past medical history TIA, on clopidogrel presents to the ED status post a mechanical fall sustained just prior to arrival. CT scan of head shows a left posterior parietal scalp hematoma, but no other acute findings. CT C-spine C-spine without acute findings. Patient's scalp wound is very minimally oozing, pressure dressing has been applied to control the bleeding. Patient's tetanus has been updated. ED return precautions discussed with patient Medical records reviewed: Yes Discharge Plan Departure Patient Disposition: Home Clinical Impression: Acute head injury Qualifiers: Encounter type: initial encounter Qualified Code(s): S09.90XA - Unspecified injury of head, initial encounter Instructions: DI for Closed Head Injury Activity Restrictions/Additional Instructions: You were evaluated in the ED for a head injury. Your CT scans of the head and neck were normal. It appears you have a little abrasion to your scalp and a goose egg. We have applied a pressure dressing to stop the bleeding. Please keep the dressing on. We have also updated your tetanus shot today which is good for the next 10 years. Please follow-up with your PCP as soon as possible. Return to the ED if you have worsening symptoms, continued bleeding. Prescriptions: No Action clopidogrel 75 mg Tablet 75 mg PO DAILY Qty: 60 2RF aspirin 81 mg Tablet,Delayed Release (Dr/Ec) 81 mg PO DAILY Qty: 60 2RF lisinopril 10 mg tablet 10 mg PO DAILY Qty: 30 2RF atorvastatin [Lipitor] 40 mg tablet 40 mg PO BEDTIME Qty: 30 2RF Referrals: Diana Severino PA-C [Primary Care Provider] - Stand Alone Forms: Patient Portal/API/Survey ED Sign-out <Elizabeth Hunter DO - Last Filed: 05/27/24 07:11> Cosign ED Attending Cosignature Attestation: I was immediately available in the department for consultation.
[2024-05-24] MEDS: TET,DIPH,PERTUSS(ACELL),VAC/PF 0.5 ML SYRINGE IM (18:45)
[2024-05-24 18:52] VITALS: BP 133/63; PULSE 80; RESP 16; O2SAT 96
== END 2024-05-24 18:52 | disposition home or self-care (01) ==
PROVIDERS: Emergency Provider Student in an Organized Health Care Education/Training Program; PCP Student in an Organized Health Care Education/Training Program
DX: S09.90XA Unspecified injury of head, initial encounter (principal); W18.30XA Fall on same level, unspecified, initial encounter; Z86.73 Personal history of transient ischemic attack (TIA), and cerebral infarction without residual deficits; Z23 Encounter for immunization
CPT/HCPCS: 70450; 72125; 90471; 99283; 99284; 90715

== ENCOUNTER → 2025-04-25 16:03 | Outpatient (CLI) | payer MEDICARE, SELFPAY ==
[2021-12-11 23:03] VITALS: BMI 27.1
--- NOTE | 2025-04-25 16:04 | DI.ECHO.S_ITS ---
[facility] : : [id number] : [place] : : [id number] : : Phone: [phone] Echocardiogram Report + + :Name: CHARLA TIDWELL Study Date: 04/25/2025 Height: 70 in : :[facility] ReadingLocation: Weight: 194 lb : : Gender: Male BSA: 2.1 m2 : :: 1940 Age: 84 yrs BP: 145/86 mmHg: :Reason For Study: MURMUR : :Ordering Physician: MERLE, : :BINDU Performed By: Karan Riddle : :Referring: BINDU BLOOM : + + Interpretation Summary TDS - POOR WINDOWS, LUNG INTERFERENCE Left ventricular wall thickness is mildly increased. The ejection fraction is estimated to be 60-65%. The aortic valve is not well visualized. There is severe aortic stenosis. The peak aortic velocity is 4.13 m/sec. Compared to the prior echo study, there has been an increase in the severity of aortic stenosis. Procedure: A two-dimensional transthoracic echocardiogram with color flow and Doppler was performed. The study quality was technically difficult. Comparison is made with the echocardiogram of 12/12/2021. The patient was in normal sinus rhythm during the exam. Left Ventricle: The left ventricle is normal in size. Left ventricular wall thickness is mildly increased. There is no ventricular septal defect visualized. The ejection fraction is estimated to be 60-65%. There are no focal wall motion abnormalities. Diastolic parameters suggest a relaxation abnormality of the left ventricle, consistent with probable normal filling pressures. Right Ventricle: The right ventricle is normal in size and function. Atria: The left atrial size is normal. Right atrial size is normal. The interatrial septum is not well visualized. Mitral Valve: There is moderate mitral annular calcification. The mitral valve leaflets are mildly calcified. There is no mitral regurgitation noted. Aortic Valve: The aortic valve is not well visualized. There is severe aortic stenosis. The peak aortic velocity is 4.13 m/sec. The aortic valve mean gradient is 44 mmHg. The calculated aortic valve area is 1.0 cm2. Compared to the prior echo study, there has been an increase in the severity of aortic stenosis. There is mild aortic regurgitation. Tricuspid Valve: The tricuspid valve is not well visualized. No tricuspid regurgitation. Pulmonic Valve: The pulmonic valve is not well visualized. There is no pulmonic valvular regurgitation. Great Vessels: The aortic root is normal size. The ascending aorta could not be visualized. The pulmonary is not well visualized. The inferior vena cava was not visualized. Pericardium/ Pleura There is no pericardial effusion. MMode/2D Measurements & Calculations LVIDd: 4.1 cm LVOT diam: 2.0 cm LVIDs: 2.8 cm Ao root diam: 3.5 cm FS: 32.3 % EPSS: 1.1 cm IVSd: 1.2 cm LVPWd: 1.1 cm LV dixon. diameter/BSA (cm/m^2): 2.0 LV sys. diameter/BSA (cm/m^2): 1.3 LA A2 area: 17.0 cm2 RA long axis: 4.0 cm LA A4 area: 21.0 cm2 RA area: 13.8 cm2 LA length (vol): 5.9 cm RA vol: 40.7 ml LA vol: 51.1 ml RA : 19.7 ml/m2 LA vol index: 24.8 ml/m2 RVD1 (basal): 3.9 cm RVD2 (mid): 3.6 cm TAPSE: 2.8 cm Doppler Measurements & Calculations Ao V2 max: 413.2 cm/sec LVOT Max Lorenzo: 129.6 cm/sec Ao V2 mean: 322.0 cm/sec LV V1 max P.7 mmHg Ao max P.3 mmHg LV V1 VTI: 34.3 cm Ao mean P.0 mmHg ELANA(I,D): 1.1 cm2 Ao V2 VTI: 98.0 cm ELANA(V,D): 0.96 cm2 sev ratio: 0.35 ELANA indexed to BSA (cm^2/m^2): 0.52 AI P1/2t: 469.9 msec AI dec slope: 306.9 cm/sec2 MV E max lorenzo: 96.5 cm/sec PA V2 max: 142.5 cm/sec MV A max lorenzo: 139.0 cm/sec PA V2 mean: 110.7 cm/sec MV E/A: 0.69 PA mean P.2 mmHg Med Peak E' Lorenzo: 6.2 cm/sec PA pr(Accel): 34.5 mmHg E/E' med: 15.6 Lat Peak E' Lorenzo: 5.3 cm/sec E/E' lat: 18.1 E/e' average: 16.8 MV dec time: 0.23 sec SV(LVOT): 105.0 ml Reading Physician:11:16 AM
== END ==
PROVIDERS: PCP Physician Assistant; Referring Provider Physician Assistant; Visit Provider Physician Assistant
DX: I34.81 Nonrheumatic mitral (valve) annulus calcification (principal); I35.2 Nonrheumatic aortic (valve) stenosis with insufficiency; R01.1 Cardiac murmur, unspecified
CPT/HCPCS: 93306